=== PATIENT | male | born 1955 | race Caucasian/White ===

== ENCOUNTER 2025-07-10 13:38 | Inpatient (IN) | payer OTHER, MEDICARE ==
[~2025-07-10 13:38] MED LIST: Iopamidol 370 76% 100 ML VIAL ONE
[2025-07-10] MEDS ORDERED: Albuterol 2.5 MG (3 mL) NEB ONE (14:05)
[2025-07-10] MEDS ORDERED: Cefepime 2 GM VIAL ONE (14:05)
[2025-07-10 14:34] LABS: Hematocrit 44.2 % (38.8-50.0); Hemoglobin 14.4 g/dL (13.5-17.5); Mean Corpuscular Hemoglobin 28.3 pg (27.0-33.0); Mean Corpuscular Volume 87.0 fL (81.2-95.1); Platelet Count 369 10x3/uL (150-450); Red Blood Cell (RBC) Count 5.08 10x6/uL (4.32-5.72); White Blood Cell (WBC) Count 30.74 10x3/uL (3.5-10.5)
[2025-07-10] MEDS ORDERED: Ketorolac Tromethamine 30 MG (1 mL) VIAL ONE (14:41)
[2025-07-10 14:42] LABS: ALT (SGPT) 41 U/L (Less than 45); AST (SGOT) 71 U/L (11-34); Albumin 2.8 g/dL (3.1-4.5); Alkaline Phosphatase 69 U/L (40-110); Anion Gap 17 mmol/L (10-20); BUN (Urea Nitrogen) 9 mg/dL (8.4-25.7); Bilirubin, Total 0.7 mg/dL (0.3-1.2); Calc. Creatinine Clearance 0 mL/min (70-130); Calcium 8.5 mg/dL (7.8-10.44); Carbon Dioxide 22 mmol/L (23-31); Chloride 101 mmol/L (98-107); Globulin 4.3 g/dL (2.4-3.5); Glucose 113 mg/dL (80-115); Potassium 4.6 mmol/L (3.5-5.1); Sodium 135 mmol/L (136-145)
[2025-07-10] MEDS ORDERED: Azithromycin 500 MG VIAL ONE (14:42)
[2025-07-10 15:06] LABS: #Basophils 0.12 10x3/uL (0.0-0.2); #Eosinophils Less than 0.03 10x3/uL (0.0-0.5); #Monocytes 1.98 10x3/uL (0.0-1.1); #Neutrophils 26.87 10x3/uL (1.5-8.4); %Basophils 0.4 % (0.0-2.0); %Eosinophils 0.1 % (0.0-6.0); %Lymphocytes 4.9 % (18.0-47.0); %Monocytes 6.4 % (0.0-10.0); %Neutrophils 87.4 % (40.0-75.0); Giant Platelets SLIGHT HPF (0-5); MDiff Complete? YES; Platelet Adequacy Comment Appears Adequate; RBC Morphology Within Normal Limits; Troponin I 0.226 ng/mL (< 0.028)
[2025-07-10] MEDS ORDERED: Enoxaparin 100 MG (1 mL) SYRINGE ONE (15:27)
[2025-07-10] MEDS ORDERED: Aspirin 325 MG TAB ONE (15:27)
[2025-07-10] MEDS ORDERED: Famotidine 20 MG TAB ONE (15:27)
[2025-07-10 17:05] LABS: ALV-art Gradient 198.875 mmHg (0-20); Actual Bicarbonate (HCO3a) 18.1 mEq/L (22-28); Analyzer IN Cardio CS ER; Base Excess (BEa) -6.0 mEq/L (-2.0 to +3.0); CO2 Tension 31.7 mmHg (35.0-45.0); Calcium, Ionized (arterial) 1.09 mmol/L (1.12-1.30); Critical Notified By: Udy, RRT; Hematocrit-ABG 42 % (42.0-52.0); Hemoglobin (Hb) 14.2 g/dL (14.0-18.0); O2 Tension (PaO2), arterial 46.7 mmHg (> 80.0); Potassium - ABG Lab 4.27 mmol/L (3.70-5.30); Puncture Site Right Radial artery; RapidComm Collect By Udy, RRT; pH, Arterial 7.374 (7.35-7.45)
[2025-07-10] MEDS ORDERED: Nitroglycerin 0.4 MG TAB (25 Tab Bottle) SL PRN (18:04)
[2025-07-10] MEDS ORDERED: Acetaminophen 325 MG TAB PO PRN (18:04)
[2025-07-10] MEDS ORDERED: Electrolyte Replacement Protocol 1 EACH FS PRN (18:15)
[2025-07-10 19:07] LABS: Troponin I 0.198 ng/mL (< 0.028)
[2025-07-10] MEDS ORDERED: Famotidine/PF 20 mg/2ml Vial SLOW IVP PRN (21:00)
[2025-07-10] MEDS: Guaifenesin DM 100-10/5 ML UDCUP PO PRN (21:09)
[2025-07-10] MEDS: VANCOMYCIN 1.75 GM/350 ML BAG 1.75 GM in Premix 1 BAG IVPB SCH (21:13)
[2025-07-10] MEDS: Famotidine 20 MG TAB PO SCH (21:48)
[2025-07-10] MEDS: HYDROcodone/Acetaminophen 5/325 mg Tablet PO PRN (21:48)
[2025-07-10 21:51] LABS: Troponin I 0.209 ng/mL (< 0.028)
[2025-07-10 21:54] LABS: Strep pneumo Urine Ag NEGATIVE (NEGATIVE)
[2025-07-10] MEDS: Nitroglycerin 2% Ointment 1 INCH/1 GM Packet TOP SCH (23:08)
[2025-07-11 00:46] LABS: Influenza A by NAA Not Detected (NotDetected); Influenza B by NAA Not Detected (NotDetected); SARS-CoV-2 NAA Rapid Test Not Detected (NotDetected)
[2025-07-11] MEDS: guaiFENesin/Codeine Phosphate 100 mg/10 mg 5 ml UD Cup PO PRN (00:51)
[2025-07-11] MEDS: Communication Order-Pharmacy FS ONE (02:20)
[2025-07-11 05:09] LABS: #Basophils 0.04 10x3/uL (0.0-0.2); #Eosinophils Less than 0.03 10x3/uL (0.0-0.5); #Monocytes 0.56 10x3/uL (0.0-1.1); #Neutrophils 16.03 10x3/uL (1.5-8.4); %Basophils 0.2 % (0.0-2.0); %Eosinophils 0.1 % (0.0-6.0); %Lymphocytes 7.3 % (18.0-47.0); %Monocytes 3.1 % (0.0-10.0); %Neutrophils 88.3 % (40.0-75.0); Hematocrit 38.5 % (38.8-50.0); Hemoglobin 12.6 g/dL (13.5-17.5); Mean Corpuscular Hemoglobin 28.8 pg (27.0-33.0); Mean Corpuscular Volume 88.1 fL (81.2-95.1); Platelet Count 297 10x3/uL (150-450); Red Blood Cell (RBC) Count 4.37 10x6/uL (4.32-5.72); White Blood Cell (WBC) Count 18.14 10x3/uL (3.5-10.5)
[2025-07-11 05:27] LABS: ALT (SGPT) 26 U/L (Less than 45); AST (SGOT) 48 U/L (11-34); Albumin 2.3 g/dL (3.1-4.5); Alkaline Phosphatase 60 U/L (40-110); Anion Gap 12 mmol/L (10-20); BUN (Urea Nitrogen) 15 mg/dL (8.4-25.7); Bilirubin, Total 0.5 mg/dL (0.3-1.2); Calc. Creatinine Clearance 127 mL/min (70-130); Calcium 8.2 mg/dL (7.8-10.44); Carbon Dioxide 21 mmol/L (23-31); Cardiac Risk 7.4 (Less than 4.5); Chloride 109 mmol/L (98-107); Cholesterol 111 mg/dl (< 200 Desired); Globulin 4.0 g/dL (2.4-3.5); Glucose 168 mg/dL (80-115); HDL Cholesterol 15 mg/dL (>60 Neg Risk); LDL Cholesterol, Calculated 73 mg/dL; Potassium 3.7 mmol/L (3.5-5.1); Sodium 138 mmol/L (136-145); Triglycerides 115 mg/dL (Less than 150)
[2025-07-11 05:46] LABS: Troponin I 0.210 ng/mL (< 0.028)
[2025-07-11 06:54] LABS: Vancomycin, Random 13.5 ug/mL (See Comment)
[2025-07-11] MEDS: Furosemide 40 MG (4 mL) VIAL ONE (07:59)
[2025-07-11] MEDS: Metoprolol Tartrate 5 MG (5 mL) VIAL ONE (08:02)
[2025-07-11 08:31] LABS: Hematocrit 45.5 % (38.8-50.0); Hemoglobin 14.3 g/dL (13.5-17.5); Mean Corpuscular Hemoglobin 28.3 pg (27.0-33.0); Mean Corpuscular Volume 89.9 fL (81.2-95.1); Platelet Count 414 10x3/uL (150-450); Red Blood Cell (RBC) Count 5.06 10x6/uL (4.32-5.72); White Blood Cell (WBC) Count 28.05 10x3/uL (3.5-10.5)
[2025-07-11 08:49] LABS: Troponin I 0.173 ng/mL (< 0.028)
[2025-07-11] MEDS ORDERED: Vancomycin 1.5 GRAM/300 ML BAG 1.5 GM in Premix 1 BAG IVPB SCH (09:00)
[2025-07-11 09:07] LABS: Anion Gap 17 mmol/L (10-20); BUN (Urea Nitrogen) 16 mg/dL (8.4-25.7); Calc. Creatinine Clearance 116 mL/min (70-130); Calcium 8.9 mg/dL (7.8-10.44); Carbon Dioxide 17 mmol/L (23-31); Chloride 110 mmol/L (98-107); Glucose 166 mg/dL (80-115); Potassium 3.1 mmol/L (3.5-5.1); Sodium 141 mmol/L (136-145)
[2025-07-11 09:16] LABS: MDiff Complete? YES; Platelet Adequacy Comment Appears Adequate; RBC Morphology Within Normal Limits
[2025-07-11] MEDS: Metoprolol Tartrate 5 MG (5 mL) VIAL IVP SCH (10:44)
[2025-07-11] MEDS: Furosemide 40 MG (4 mL) VIAL SLOW IVP SCH (10:44)
[2025-07-11 10:46] LABS: Magnesium 2.2 mg/dL (1.6-2.6)
[2025-07-11] MEDS: Metoprolol Succinate XL 50 MG ER.TAB PO SCH ×2 (10:54→11:11)
[2025-07-11] MEDS: VANCOMYCIN 1.25 GM/250 ML BAG 1.25 GM in Premix 1 BAG IVPB SCH (10:55)
[2025-07-11] MEDS: Aspirin Chewable 81 MG TAB PO SCH (10:55)
[2025-07-11 17:26] LABS: Potassium 4.5 mmol/L (3.5-5.1)
[2025-07-11] MEDS: Melatonin 3 MG TAB PO PRN (21:03)
[2025-07-11] MEDS: Lisinopril 20 MG TAB PO SCH (21:04)
[2025-07-11] MEDS: Mupirocin 1 GM TUBE TP SCH (21:05)
[2025-07-12 04:19] LABS: Anion Gap 12 mmol/L (10-20); BUN (Urea Nitrogen) 28 mg/dL (8.4-25.7); Calc. Creatinine Clearance 116 mL/min (70-130); Calcium 8.5 mg/dL (7.8-10.44); Carbon Dioxide 24 mmol/L (23-31); Chloride 110 mmol/L (98-107); Glucose 138 mg/dL (80-115); Magnesium 2.3 mg/dL (1.6-2.6); Potassium 4.5 mmol/L (3.5-5.1); Sodium 141 mmol/L (136-145)
[2025-07-12 04:44] LABS: Hematocrit 38.2 % (38.8-50.0); Hemoglobin 12.3 g/dL (13.5-17.5); Mean Corpuscular Hemoglobin 28.5 pg (27.0-33.0); Mean Corpuscular Volume 88.6 fL (81.2-95.1); Platelet Count 397 10x3/uL (150-450); Red Blood Cell (RBC) Count 4.31 10x6/uL (4.32-5.72); White Blood Cell (WBC) Count 26.72 10x3/uL (3.5-10.5)
[2025-07-12 04:46] LABS: MDiff Complete? YES; Platelet Adequacy Comment Appears Adequate; RBC Morphology Within Normal Limits
[2025-07-12] MEDS: Enoxaparin 80 MG (0.8 mL) SYRINGE SC SCH (08:52)
[2025-07-12] MEDS: Metoprolol Succinate XL 50 MG ER.TAB PO SCH (08:53)
[2025-07-12] MEDS: guaiFENesin/Codeine Phosphate 100 mg/10 mg 5 ml UD Cup PO PRN (08:54)
[2025-07-12] MEDS: Furosemide 20 MG (2 mL) VIAL SLOW IVP SCH (10:37)
[2025-07-13 04:50] LABS: Hematocrit 38.0 % (38.8-50.0); Hemoglobin 12.4 g/dL (13.5-17.5); Mean Corpuscular Hemoglobin 28.9 pg (27.0-33.0); Mean Corpuscular Volume 88.6 fL (81.2-95.1); Platelet Count 349 10x3/uL (150-450); Red Blood Cell (RBC) Count 4.29 10x6/uL (4.32-5.72); White Blood Cell (WBC) Count 21.40 10x3/uL (3.5-10.5)
[2025-07-13 04:51] LABS: MDiff Complete? YES; Platelet Adequacy Comment Appears Adequate; RBC Morphology Within Normal Limits; Vancomycin, Random 22.5 ug/mL (See Comment)
[2025-07-13 04:53] LABS: Anion Gap 15 mmol/L (10-20); BUN (Urea Nitrogen) 26 mg/dL (8.4-25.7); Calc. Creatinine Clearance 116 mL/min (70-130); Calcium 8.4 mg/dL (7.8-10.44); Carbon Dioxide 21 mmol/L (23-31); Chloride 108 mmol/L (98-107); Glucose 134 mg/dL (80-115); Potassium 4.0 mmol/L (3.5-5.1); Sodium 140 mmol/L (136-145)
[2025-07-13] MEDS: Vancomycin 1 GM in Sodium Chloride 0.9% 250 ML 250 ML IVPB SCH (08:38)
[2025-07-14] MEDS: Furosemide 20 MG (2 mL) VIAL ONE (00:35)
[2025-07-14] MEDS: Furosemide 20 MG (2 mL) VIAL SLOW IVP SCH (00:35)
[2025-07-14 03:35] LABS: #Basophils Less than 0.03 10x3/uL (0.0-0.2); #Eosinophils Less than 0.03 10x3/uL (0.0-0.5); #Monocytes 1.35 10x3/uL (0.0-1.1); #Neutrophils 16.10 10x3/uL (1.5-8.4); %Basophils 0.1 % (0.0-2.0); %Eosinophils 0.1 % (0.0-6.0); %Lymphocytes 7.4 % (18.0-47.0); %Monocytes 7.1 % (0.0-10.0); %Neutrophils 84.1 % (40.0-75.0); Hematocrit 38.5 % (38.8-50.0); Hemoglobin 12.7 g/dL (13.5-17.5); Mean Corpuscular Hemoglobin 28.7 pg (27.0-33.0); Mean Corpuscular Volume 87.1 fL (81.2-95.1); Platelet Count 325 10x3/uL (150-450); Red Blood Cell (RBC) Count 4.42 10x6/uL (4.32-5.72); White Blood Cell (WBC) Count 19.11 10x3/uL (3.5-10.5)
[2025-07-14 03:50] LABS: Anion Gap 12 mmol/L (10-20); BUN (Urea Nitrogen) 23 mg/dL (8.4-25.7); Calc. Creatinine Clearance 118 mL/min (70-130); Calcium 8.3 mg/dL (7.8-10.44); Carbon Dioxide 24 mmol/L (23-31); Chloride 106 mmol/L (98-107); Glucose 113 mg/dL (80-115); Potassium 3.9 mmol/L (3.5-5.1); Sodium 138 mmol/L (136-145)
[2025-07-14 10:08] LABS: ALT (SGPT) 64 U/L (Less than 45); AST (SGOT) 70 U/L (11-34); Albumin 2.7 g/dL (3.1-4.5); Alkaline Phosphatase 66 U/L (40-110); Anion Gap 18 mmol/L (10-20); BUN (Urea Nitrogen) 24 mg/dL (8.4-25.7); Bilirubin, Total 0.4 mg/dL (0.3-1.2); Calc. Creatinine Clearance 117 mL/min (70-130); Calcium 8.4 mg/dL (7.8-10.44); Carbon Dioxide 20 mmol/L (23-31); Chloride 107 mmol/L (98-107); Globulin 3.8 g/dL (2.4-3.5); Glucose 102 mg/dL (80-115); Potassium 3.9 mmol/L (3.5-5.1); Sodium 141 mmol/L (136-145)
[2025-07-14] MEDS: Benzonatate 100 MG CAP PO SCH ×2 (12:20→14:31)
[2025-07-15 04:22] LABS: #Basophils Less than 0.03 10x3/uL (0.0-0.2); #Eosinophils Less than 0.03 10x3/uL (0.0-0.5); #Monocytes 0.49 10x3/uL (0.0-1.1); #Neutrophils 12.83 10x3/uL (1.5-8.4); %Basophils 0.1 % (0.0-2.0); %Eosinophils 0.1 % (0.0-6.0); %Lymphocytes 9.2 % (18.0-47.0); %Monocytes 3.3 % (0.0-10.0); %Neutrophils 85.4 % (40.0-75.0); Hematocrit 37.4 % (38.8-50.0); Hemoglobin 12.5 g/dL (13.5-17.5); Mean Corpuscular Hemoglobin 28.9 pg (27.0-33.0); Mean Corpuscular Volume 86.6 fL (81.2-95.1); Platelet Count 302 10x3/uL (150-450); Red Blood Cell (RBC) Count 4.32 10x6/uL (4.32-5.72); White Blood Cell (WBC) Count 15.01 10x3/uL (3.5-10.5)
[2025-07-15 04:34] LABS: Vancomycin, Random 16.4 ug/mL (See Comment)
[2025-07-15 04:36] LABS: Anion Gap 12 mmol/L (10-20); BUN (Urea Nitrogen) 25 mg/dL (8.4-25.7); Calc. Creatinine Clearance 126 mL/min (70-130); Calcium 8.2 mg/dL (7.8-10.44); Carbon Dioxide 24 mmol/L (23-31); Chloride 106 mmol/L (98-107); Glucose 146 mg/dL (80-115); Potassium 4.2 mmol/L (3.5-5.1); Sodium 138 mmol/L (136-145)
[2025-07-15 04:55] LABS: HIV (1/2) Antibody/Antigen Non-Reactive (NonReactive); HIV 1/2 INDEX 0.15 S/CO (<1.00)
[2025-07-15] MEDS: VANCOMYCIN 1.25 GM/250 ML BAG 1.25 GM in Premix 1 BAG IVPB SCH (08:14)
[2025-07-15 08:41] LABS: #Basophils Less than 0.03 10x3/uL (0.0-0.2); #Eosinophils Less than 0.03 10x3/uL (0.0-0.5); #Monocytes 0.67 10x3/uL (0.0-1.1); #Neutrophils 14.48 10x3/uL (1.5-8.4); %Basophils 0.1 % (0.0-2.0); %Eosinophils 0.1 % (0.0-6.0); %Lymphocytes 10.1 % (18.0-47.0); %Monocytes 3.9 % (0.0-10.0); %Neutrophils 84.2 % (40.0-75.0); Hematocrit 38.9 % (38.8-50.0); Hemoglobin 12.6 g/dL (13.5-17.5); Mean Corpuscular Hemoglobin 28.4 pg (27.0-33.0); Mean Corpuscular Volume 87.8 fL (81.2-95.1); Platelet Count 293 10x3/uL (150-450); Red Blood Cell (RBC) Count 4.43 10x6/uL (4.32-5.72); White Blood Cell (WBC) Count 17.19 10x3/uL (3.5-10.5)
[2025-07-15] MEDS ORDERED: Benzonatate 100 MG CAP PO SCH (09:00)
[2025-07-15] MEDS: Furosemide 40 MG (4 mL) VIAL SLOW IVP SCH (09:20)
[2025-07-15] MEDS: Benzonatate 100 MG CAP PO SCH ×2 (09:27→14:30)
[2025-07-16 05:33] LABS: #Basophils 0.07 10x3/uL (0.0-0.2); #Eosinophils 0.45 10x3/uL (0.0-0.5); #Monocytes 1.25 10x3/uL (0.0-1.1); #Neutrophils 15.45 10x3/uL (1.5-8.4); %Basophils 0.3 % (0.0-2.0); %Eosinophils 2.1 % (0.0-6.0); %Lymphocytes 17.9 % (18.0-47.0); %Monocytes 5.7 % (0.0-10.0); %Neutrophils 70.7 % (40.0-75.0); Hematocrit 39.7 % (38.8-50.0); Hemoglobin 13.1 g/dL (13.5-17.5); Mean Corpuscular Hemoglobin 28.5 pg (27.0-33.0); Mean Corpuscular Volume 86.3 fL (81.2-95.1); Platelet Count 316 10x3/uL (150-450); Red Blood Cell (RBC) Count 4.60 10x6/uL (4.32-5.72); White Blood Cell (WBC) Count 21.87 10x3/uL (3.5-10.5)
[2025-07-16 05:47] LABS: Anion Gap 9 mmol/L (10-20); BUN (Urea Nitrogen) 27 mg/dL (8.4-25.7); Calc. Creatinine Clearance 124 mL/min (70-130); Calcium 8.2 mg/dL (7.8-10.44); Carbon Dioxide 25 mmol/L (23-31); Chloride 104 mmol/L (98-107); Glucose 84 mg/dL (80-115); Potassium 4.0 mmol/L (3.5-5.1); Sodium 134 mmol/L (136-145)
[2025-07-16] MEDS: Fluconazole In NaCl,Iso-Osm 200 MG in Premix 1 BAG IVPB SCH (10:34)
[2025-07-16] MEDS: Furosemide 40 MG (4 mL) VIAL SLOW IVP SCH (11:52)
[2025-07-16] MEDS: Furosemide 40 MG (4 mL) VIAL ONE (12:03)
[2025-07-17 04:17] LABS: Vancomycin, Random 26.4 ug/mL (See Comment)
[2025-07-17 07:28] LABS: BUN (Urea Nitrogen) 27.0 mg/dL (8.4-25.7); Calc. Creatinine Clearance 134.0 mL/min (70-130)
[2025-07-17 09:23] LABS: Vancomycin, Random 20.0 ug/mL (See Comment)
[2025-07-17] MEDS: Vancomycin 1 GM in Sodium Chloride 0.9% 250 ML 250 ML IVPB SCH (11:53)
[2025-07-18 04:16] LABS: Vancomycin, Random 21.9 ug/mL (See Comment)
[2025-07-18 04:25] LABS: BUN (Urea Nitrogen) 23.0 mg/dL (8.4-25.7); Calc. Creatinine Clearance 147.0 mL/min (70-130)
[2025-07-18] MEDS ORDERED: Enoxaparin 40 MG (0.4 mL) SYRINGE SC SCH (09:00)
[2025-07-18] MEDS: Vancomycin 1 GM in Sodium Chloride 0.9% 250 ML 250 ML IVPB SCH (20:43)
[2025-07-19] MEDS: VANCOMYCIN 1.25 GM/250 ML BAG 1.25 GM in Premix 1 BAG IVPB SCH (08:58)
[2025-07-19] MEDS: Enoxaparin 40 MG (0.4 mL) SYRINGE SC SCH (08:59)
[2025-07-19] MEDS: Ondansetron PF 4 MG/2 ML Vial IVP PRN (09:00)
[2025-07-19 09:12] LABS: BUN (Urea Nitrogen) 23.0 mg/dL (8.4-25.7); Calc. Creatinine Clearance 145.0 mL/min (70-130); Vancomycin, Random 47.7 ug/mL (See Comment)
[2025-07-19] MEDS: Vancomycin 1 GM in Sodium Chloride 0.9% 250 ML 250 ML IVPB SCH (20:47)
[2025-07-20 04:26] LABS: #Basophils 0.11 10x3/uL (0.0-0.2); #Eosinophils 0.99 10x3/uL (0.0-0.5); #Monocytes 1.66 10x3/uL (0.0-1.1); #Neutrophils 14.28 10x3/uL (1.5-8.4); %Basophils 0.5 % (0.0-2.0); %Eosinophils 4.4 % (0.0-6.0); %Lymphocytes 19.5 % (18.0-47.0); %Monocytes 7.4 % (0.0-10.0); %Neutrophils 63.5 % (40.0-75.0); Hematocrit 47.4 % (38.8-50.0); Hemoglobin 15.3 g/dL (13.5-17.5); Mean Corpuscular Hemoglobin 28.3 pg (27.0-33.0); Mean Corpuscular Volume 87.8 fL (81.2-95.1); Platelet Count 337 10x3/uL (150-450); Red Blood Cell (RBC) Count 5.40 10x6/uL (4.32-5.72); White Blood Cell (WBC) Count 22.48 10x3/uL (3.5-10.5)
[2025-07-20 04:46] LABS: BUN (Urea Nitrogen) 24.0 mg/dL (8.4-25.7); Calc. Creatinine Clearance 116.0 mL/min (70-130); Vancomycin, Random 19.2 ug/mL (See Comment)
[2025-07-20] MEDS: Vancomycin HCl 750 MG in Sodium Chloride 0.9% 250 ML 250 ML IVPB SCH (09:40)
[2025-07-20] MEDS: Vancomycin 1 GM in Sodium Chloride 0.9% 250 ML 250 ML IVPB SCH (21:27)
[2025-07-21 05:15] LABS: #Basophils 0.07 10x3/uL (0.0-0.2); #Eosinophils 1.05 10x3/uL (0.0-0.5); #Monocytes 1.62 10x3/uL (0.0-1.1); #Neutrophils 13.12 10x3/uL (1.5-8.4); %Basophils 0.3 % (0.0-2.0); %Eosinophils 5.2 % (0.0-6.0); %Lymphocytes 17.5 % (18.0-47.0); %Monocytes 8.1 % (0.0-10.0); %Neutrophils 65.7 % (40.0-75.0); Hematocrit 46.3 % (38.8-50.0); Hemoglobin 14.9 g/dL (13.5-17.5); Mean Corpuscular Hemoglobin 28.3 pg (27.0-33.0); Mean Corpuscular Volume 88.0 fL (81.2-95.1); Platelet Count 294 10x3/uL (150-450); Red Blood Cell (RBC) Count 5.26 10x6/uL (4.32-5.72); White Blood Cell (WBC) Count 20.02 10x3/uL (3.5-10.5)
[2025-07-21 05:22] LABS: Vancomycin, Random 21.1 ug/mL (See Comment)
[2025-07-22 04:53] LABS: #Basophils 0.03 10x3/uL (0.0-0.2); #Eosinophils 0.91 10x3/uL (0.0-0.5); #Monocytes 1.29 10x3/uL (0.0-1.1); #Neutrophils 11.50 10x3/uL (1.5-8.4); %Basophils 0.2 % (0.0-2.0); %Eosinophils 5.3 % (0.0-6.0); %Lymphocytes 17.5 % (18.0-47.0); %Monocytes 7.6 % (0.0-10.0); %Neutrophils 67.5 % (40.0-75.0); Hematocrit 44.3 % (38.8-50.0); Hemoglobin 14.5 g/dL (13.5-17.5); Mean Corpuscular Hemoglobin 28.2 pg (27.0-33.0); Mean Corpuscular Volume 86.2 fL (81.2-95.1); Platelet Count 228 10x3/uL (150-450); Red Blood Cell (RBC) Count 5.14 10x6/uL (4.32-5.72); White Blood Cell (WBC) Count 17.04 10x3/uL (3.5-10.5)
[2025-07-22 05:02] LABS: Calc. Creatinine Clearance 149.0 mL/min (70-130)
[2025-07-22 05:05] VITALS: BMI 24.4
[2025-07-22] MEDS: Fluconazole In NaCl,Iso-Osm 200 MG in Premix 1 BAG IVPB SCH (12:49)
[2025-07-23 05:25] LABS: #Basophils 0.04 10x3/uL (0.0-0.2); #Eosinophils 0.69 10x3/uL (0.0-0.5); #Monocytes 1.27 10x3/uL (0.0-1.1); #Neutrophils 10.17 10x3/uL (1.5-8.4); %Basophils 0.3 % (0.0-2.0); %Eosinophils 4.5 % (0.0-6.0); %Lymphocytes 18.9 % (18.0-47.0); %Monocytes 8.3 % (0.0-10.0); %Neutrophils 66.2 % (40.0-75.0); Hematocrit 44.5 % (38.8-50.0); Hemoglobin 14.6 g/dL (13.5-17.5); Mean Corpuscular Hemoglobin 28.6 pg (27.0-33.0); Mean Corpuscular Volume 87.3 fL (81.2-95.1); Platelet Count 235 10x3/uL (150-450); Red Blood Cell (RBC) Count 5.10 10x6/uL (4.32-5.72); White Blood Cell (WBC) Count 15.36 10x3/uL (3.5-10.5)
[2025-07-23 05:40] LABS: Vancomycin, Random 18.8 ug/mL (See Comment)
[2025-07-23 05:42] LABS: Anion Gap 15 mmol/L (10-20); BUN (Urea Nitrogen) 14 mg/dL (8.4-25.7); Calc. Creatinine Clearance 124 mL/min (70-130); Calcium 8.5 mg/dL (7.8-10.44); Carbon Dioxide 21 mmol/L (23-31); Chloride 105 mmol/L (98-107); Glucose 81 mg/dL (80-115); Sodium 136 mmol/L (136-145)
[2025-07-23 05:52] LABS: Potassium 4.6 mmol/L (3.5-5.1)
[2025-07-23] MEDS: guaiFENesin/Codeine Phosphate 100 mg/10 mg 5 ml UD Cup PO PRN (09:01)
[2025-07-24 07:43] LABS: Anion Gap 11 mmol/L (10-20); BUN (Urea Nitrogen) 14 mg/dL (8.4-25.7); Calc. Creatinine Clearance 125 mL/min (70-130); Calcium 8.7 mg/dL (7.8-10.44); Carbon Dioxide 26 mmol/L (23-31); Chloride 105 mmol/L (98-107); Glucose 85 mg/dL (80-115); Potassium 4.4 mmol/L (3.5-5.1); Sodium 138 mmol/L (136-145)
[2025-07-24 07:56] LABS: Hematocrit 43.2 % (38.8-50.0); Hemoglobin 14.1 g/dL (13.5-17.5); Mean Corpuscular Hemoglobin 28.5 pg (27.0-33.0); Mean Corpuscular Volume 87.4 fL (81.2-95.1); Platelet Count 250 10x3/uL (150-450); Red Blood Cell (RBC) Count 4.94 10x6/uL (4.32-5.72); White Blood Cell (WBC) Count 16.25 10x3/uL (3.5-10.5)
[2025-07-24 07:58] LABS: #Basophils 0.11 10x3/uL (0.0-0.2); #Eosinophils 0.68 10x3/uL (0.0-0.5); #Monocytes 1.52 10x3/uL (0.0-1.1); #Neutrophils 10.94 10x3/uL (1.5-8.4); %Basophils 0.7 % (0.0-2.0); %Eosinophils 4.2 % (0.0-6.0); %Lymphocytes 17.4 % (18.0-47.0); %Monocytes 9.4 % (0.0-10.0); %Neutrophils 67.3 % (40.0-75.0)
[2025-07-25 05:58] LABS: #Basophils 0.11 10x3/uL (0.0-0.2); #Eosinophils 0.61 10x3/uL (0.0-0.5); #Monocytes 1.20 10x3/uL (0.0-1.1); #Neutrophils 8.50 10x3/uL (1.5-8.4); %Basophils 0.8 % (0.0-2.0); %Eosinophils 4.6 % (0.0-6.0); %Lymphocytes 20.0 % (18.0-47.0); %Monocytes 9.1 % (0.0-10.0); %Neutrophils 64.4 % (40.0-75.0); Hematocrit 44.5 % (38.8-50.0); Hemoglobin 14.0 g/dL (13.5-17.5); Mean Corpuscular Hemoglobin 27.7 pg (27.0-33.0); Mean Corpuscular Volume 87.9 fL (81.2-95.1); Platelet Count 227 10x3/uL (150-450); Red Blood Cell (RBC) Count 5.06 10x6/uL (4.32-5.72); White Blood Cell (WBC) Count 13.22 10x3/uL (3.5-10.5)
[2025-07-25 06:10] LABS: Vancomycin, Random 15.5 ug/mL (See Comment)
[2025-07-25 06:11] LABS: Anion Gap 11 mmol/L (10-20); BUN (Urea Nitrogen) 12 mg/dL (8.4-25.7); Calc. Creatinine Clearance 116 mL/min (70-130); Calcium 8.6 mg/dL (7.8-10.44); Carbon Dioxide 27 mmol/L (23-31); Chloride 104 mmol/L (98-107); Glucose 87 mg/dL (80-115); Potassium 4.4 mmol/L (3.5-5.1); Sodium 138 mmol/L (136-145)
[2025-07-25 14:12] VITALS: BMI 24.6
[2025-07-26 05:02] LABS: #Basophils 0.14 10x3/uL (0.0-0.2); #Eosinophils 0.57 10x3/uL (0.0-0.5); #Monocytes 1.37 10x3/uL (0.0-1.1); #Neutrophils 11.97 10x3/uL (1.5-8.4); %Basophils 0.9 % (0.0-2.0); %Eosinophils 3.5 % (0.0-6.0); %Lymphocytes 13.0 % (18.0-47.0); %Monocytes 8.4 % (0.0-10.0); %Neutrophils 73.5 % (40.0-75.0); Hematocrit 43.9 % (38.8-50.0); Hemoglobin 14.4 g/dL (13.5-17.5); Mean Corpuscular Hemoglobin 28.6 pg (27.0-33.0); Mean Corpuscular Volume 87.1 fL (81.2-95.1); Platelet Count 233 10x3/uL (150-450); Red Blood Cell (RBC) Count 5.04 10x6/uL (4.32-5.72); White Blood Cell (WBC) Count 16.28 10x3/uL (3.5-10.5)
[2025-07-26 05:16] LABS: Anion Gap 12 mmol/L (10-20); BUN (Urea Nitrogen) 12 mg/dL (8.4-25.7); Calc. Creatinine Clearance 115 mL/min (70-130); Calcium 9.2 mg/dL (7.8-10.44); Carbon Dioxide 28 mmol/L (23-31); Chloride 104 mmol/L (98-107); Glucose 95 mg/dL (80-115); Potassium 4.7 mmol/L (3.5-5.1); Sodium 139 mmol/L (136-145)
[2025-07-26 16:44] VITALS: BP 135/74; TEMP 97.2
[2025-07-28 08:37] LABS: Blastomyces Antibodies Negative (Neg:<1:1); Histoplasma Abs, Quant, DID Negative (Neg:<1:1)
== END 2025-07-26 18:44 | disposition home or self-care (01) | DRG 871 ==
LOC: CSHERS 13:38 → CSHTELE 18:02 → CSHICU 07-11 09:06 → CSHTELE 07-19 15:02
PROVIDERS: ADMIT Family Medicine; ATTEND Hospitalist
PROC: 4A033R1 Measurement of Arterial Saturation, Peripheral, Percutaneous Approach (ICD-10-PCS; 2025-07-10)
PROC: 3E04329 Introduction of Other Anti-infective into Central Vein, Percutaneous Approach (ICD-10-PCS; 2025-07-10)
PROC: 5A0945A Assistance with Respiratory Ventilation, 24-96 Consecutive Hours, High Flow/Velocity Cannula (ICD-10-PCS; principal; 2025-07-14)
PROC: 5A0935A Assistance with Respiratory Ventilation, Less than 24 Consecutive Hours, High Flow/Velocity Cannula (ICD-10-PCS; 2025-07-17)
DX: A41.9 Sepsis, unspecified organism (principal); I21.A1 Myocardial infarction type 2; J80 Acute respiratory distress syndrome; I50.32 Chronic diastolic (congestive) heart failure; M86.8X7 Other osteomyelitis, ankle and foot; G93.40 Encephalopathy, unspecified; J82.81 Chronic eosinophilic pneumonia; R65.20 Severe sepsis without septic shock; Z87.891 Personal history of nicotine dependence; R74.01 Elevation of levels of liver transaminase levels; Z89.422 Acquired absence of other left toe(s); I73.9 Peripheral vascular disease, unspecified; I11.0 Hypertensive heart disease with heart failure; I27.20 Pulmonary hypertension, unspecified; Z99.81 Dependence on supplemental oxygen; M54.9 Dorsalgia, unspecified; G89.29 Other chronic pain; G62.9 Polyneuropathy, unspecified; Z60.2 Problems related to living alone; Z98.890 Other specified postprocedural states; Z89.432 Acquired absence of left foot; E78.00 Pure hypercholesterolemia, unspecified; Z79.899 Other long term (current) drug therapy; Y95 Nosocomial condition; J70.4 Drug-induced interstitial lung disorders, unspecified; T36.8X5A Adverse effect of other systemic antibiotics, initial encounter; F41.9 Anxiety disorder, unspecified; I25.2 Old myocardial infarction; Z79.82 Long term (current) use of aspirin; Z79.51 Long term (current) use of inhaled steroids
CPT/HCPCS: 36415; 36416; 36600; 71045; 71275; 80048; 80053; 80061; 80202; 82565; 82805; 83605; 83735; 83880; 84100; 84145; 84484; 84520; 85025; 86140; 86480; 86612; 86698; 87040; 87070; 87077; 87081; 87116; 87205; 87206; 87389; 87449; 87636; 89220; 93005; 93010; 93306; 94640; 94760; 94762; 96365; 96367; 96372; 96374; 96375; 97139; J0456; J0692; J1450; J1650; J1885; J1940; J2060; J2270; J2405; J2919; J3010; J3373; J3375; J7050; J7120; J7611; Q0162; Q9967